=== PATIENT | female | born 1975 | race Caucasian/White ===

== ENCOUNTER 2017-10-17 22:48 | Emergency (ER) | payer MEDICAID ==
[2017-10-17 22:57] VITALS: BP 127/87
== END 2017-10-17 23:35 | disposition home or self-care (01) ==
LOC: ED 23:29
DX: K02.9 Dental caries, unspecified (principal); K04.7 Periapical abscess without sinus; B34.9 Viral infection, unspecified; G43.909 Migraine, unspecified, not intractable, without status migrainosus
CPT/HCPCS: 41800; 99283